=== PATIENT | female | born 1950 ===

== ENCOUNTER 2020-12-29 07:15 | Inpatient (IN) | payer OTHER ==
[~2020-12-29] VITALS: Ht 162.6 cm; Wt 90.7 kg
[2020-12-29] MEDS ORDERED: GLIPIZIDE XL10 MG (09:28)
[2020-12-29] MEDS ORDERED: ATACAND32 MG (09:28)
[2020-12-29] MEDS ORDERED: PROZAC40 MG (09:29)
[2020-12-29] MEDS ORDERED: JANUVIA100 MG (09:29)
[2020-12-29] MEDS ORDERED: CLONAZEPAM1 MG (09:30)
[2021-01-04] MEDS ORDERED: METHOTREXA25 MG/1 M5 (08:16)
[2021-01-04] MEDS ORDERED: RAYOS5 MG (08:16)
[2021-01-04] MEDS ORDERED: ATORVASTATIN CA20 MG (08:16)
[2021-01-04] MEDS ORDERED: PREGABALIN50 MG (08:16)
[2021-01-04] MEDS ORDERED: DICLOFENAC SODI50 MG (08:17)
[2021-01-04] MEDS ORDERED: CANDESARTAN-HC1 EAC1 (08:17)
[2021-01-06] MEDS ORDERED: ELIQUIS2.5 MG PO (07:31)
[2021-01-06] MEDS ORDERED: DUI500 PO (07:31)
[2021-01-06] MEDS ORDERED: PERCOCET 5-3251 EACH PO (07:31)
== END 2021-01-06 18:33 | DRG 470 ==
LOC: O/R 01-03 06:24 → SURH 01-03 06:24
PROVIDERS: ADMIT Orthopaedic Surgery; ATTEND Orthopaedic Surgery
PROC: 0SRB0J9 Replacement of Left Hip Joint with Synthetic Substitute, Cemented, Open Approach (ICD-10-PCS; principal; 2021-01-03 12:00)
DX: M16.12 Unilateral primary osteoarthritis, left hip (principal); D62 Acute posthemorrhagic anemia; I10 Essential (primary) hypertension; E11.9 Type 2 diabetes mellitus without complications; Z79.84 Long term (current) use of oral hypoglycemic drugs